=== PATIENT | female | born 1950 | race Caucasian/White ===

== ENCOUNTER → 2020-07-09 | Outpatient (CLI) | payer MEDICARE | END | disposition home or self-care (01) | LOC: RAH 07:41 | PROVIDERS: ATTEND Family Medicine Sports Medicine | DX: M51.36 Other intervertebral disc degeneration, lumbar region (principal); M96.1 Postlaminectomy syndrome, not elsewhere classified; D18.09 Hemangioma of other sites | CPT/HCPCS: 72148 ==